=== PATIENT | female | born 1945 | race Caucasian/White ===

== ENCOUNTER → 2016-07-19 | Day surgery (SDC) | payer OTHER ==
[~2016-07-19] VITALS: Ht 165.1 cm; Wt 97.8 kg
[~2016-07-19] MED LIST: AMLO5TAB2 PO; APREPITANT 40 MG CAP ONE; ASPI1TAB69 PO; ASPI81CH CHEW; CARV12.52 PO; CHLORHEXIDINE GLUCONATE 2 % 1 PACK (2 CLOTHS) TOPICAL PRN; DO NOT ADM ANY ANTICOAGULANT DRUGS PRN; FERRIC SUBSULFATE 8 ML TOP SOLN ONE; GLIP5TAB8 PO; HYDR25TA5 PO; IBUPROFEN 200 MG TAB PO PRN; KETOROLAC TROMETHAMINE 30 MG/ML (IVP) VIAL IV PUSH PRN; KETOROLAC TROMETHAMINE 30 MG/ML (IVP) VIAL ONE; LACTATED RINGER'S 1000 ML IV PRN; LEVO.15 PO; MEDR10TA7 PO; METF1000 PO; METOPROLOL TARTRATE 25 MG TAB PO PRN; OMEG100010 PO; OMEP20TA PO; ONDANSETRON HCL 4 MG/2 ML VIAL IV PUSH ONE; OXYC1TAB63 PO; POVIDONE IODINE 5% (ANTISEPSIS KIT) 4 APPLICATIONS EACH NARE PRN; PRAD150C PO; PRAV40TA2 PO; PROPOFOL 200 MG/20 ML AMP IV ONE; RAMI10CA PO; SODIUM CHLORID 0.9% 500 ML IV PRN
[2016-07-19 07:21] VITALS: BP 159/69; PULSE 68; RESP 16; TEMP 98.7; O2SAT 98
[2016-07-19 11:40] VITALS: BP 127/72; PULSE 64; RESP 16; TEMP 97.8; O2SAT 95
[2016-07-19] MEDS: INSULIN HUMAN REGULAR 1,000 UNITS/10 ML VIAL SQ PRN ×2 (11:40→14:20)
--- NOTE | 2016-07-20 12:33 | MP ---
cc: MAIKEL GRIFFIN KELLY L. MD DATE OF PROCEDURE 07/19/2016 PREOPERATIVE DIAGNOSIS Thickened endometrial stripe. Postmenopausal bleeding. POSTOPERATIVE DIAGNOSIS Thickened endometrial stripe. Postmenopausal bleeding. PROCEDURE Examination under anesthesia, fractional dilation and curettage. SURGEON Larisa Marsh MD FILM RENTAL CLERK Nabil surveyor's assistant. ANESTHESIA Laryngeal mask anesthesia. ESTIMATED BLOOD LOSS Less than 20 cc. HISTORY A 70-year-old female with postmenopausal bleeding, endometrial stripe thickened on ultrasound. She was counseled. She also has an adnexal mass, ultimately scheduled for definitive surgery but the value of clarification of the presence or absence of endometrial cancer prior to that surgery for further planning and counseling was considered and she presents now for diagnostic surgical evaluation. FINDINGS There is no appreciably enlarged inguinal lymph node. External genitalia without mass or lesion. She has a fairly large rectocele and a moderate cystocele. The cervix grossly appears normal. The uterine cavity is anteverted, difficult to delineate the fundal height. Cautious sounding with uterine sound continued at least to 10 cm, was not pressed beyond that point. There was a small to moderate amount of tissue obtained from the endocervical canal and from the endometrial cavity. Most of the endometrial surface felt gritty and curetting did not produce any the large tissue fragments or polypoid material. PROCEDURE The patient was taken to the operating room, placed in dorsal lithotomy position. After laryngeal mask anesthesia was administered, time-out was undertaken. The patient was identified by sight recognition and hospital ID bracelet and the proposed procedure was reviewed and confirmed. She was carefully positioned in stirru. Exam under anesthesia was performed with findings as described above. Prepped and draped in the usual sterile fashion, in-and-out catheterization performed. The cervix was grasped. Posterior retractor and handheld retractors were used to help retract the cystocele and rectocele. The cervix was grasped, small dilator was used to dilate the cervix until a uterine sound could be passed. As noted above, the uterine cavity was anteverted and without resistance the sound passed to 10 cm but was not pressed beyond that. The fundal height it is uncertain, was concern about false passage or abnormal anatomy. The endocervical curetting was performed. Circumferential biopsies, multiple passes of tissue combined as endocervical curettings. Next the cervix was dilated and then medium-sized curette was used to curette the surfaces of the endometrium which felt gritty with tissue obtained as described above. Instrument was removed from the cervix, site was rendered hemostatic with topical Monsel's solution. There was good hemostasis, no remaining foreign objects in the vagina. Preliminary and final counts were correct. She was returned to dorsal supine position and was pending reversal of anesthesia when I left the operating room to precede her to the Post-Anesthesia Care Unit. MD RAYNE Sawyer/SSB /7:30 AM /12:27 PM
== END | disposition home or self-care (01) ==
LOC: HSDC 06:26
PROVIDERS: ATTEND Obstetrics & Gynecology Gynecologic Oncology
DX: C54.1 Malignant neoplasm of endometrium (principal); I13.0 Hypertensive heart and chronic kidney disease with heart failure and stage 1 through stage 4 chronic kidney disease, or unspecified chronic kidney disease; N18.2 Chronic kidney disease, stage 2 (mild); I50.9 Heart failure, unspecified; E66.9 Obesity, unspecified; E78.5 Hyperlipidemia, unspecified; E03.9 Hypothyroidism, unspecified; I25.10 Atherosclerotic heart disease of native coronary artery without angina pectoris; I48.91 Unspecified atrial fibrillation; Z95.5 Presence of coronary angioplasty implant and graft; Z68.35 Body mass index [BMI] 35.0-35.9, adult; Z88.1 Allergy status to other antibiotic agents; Z88.8 Allergy status to other drugs, medicaments and biological substances
CPT/HCPCS: 58120; 82948; 86850; 86900; 86901; 88305; 88341; 88342; J1815; J1885; J2405; J3010; J7120; J8501

== ENCOUNTER 2016-08-24 05:42 | Observation (INO) | payer OTHER ==
--- NOTE | 2016-07-19 14:36 | PD.CONS ---
HPI Service [facility] ([place], [place])ists Consult Requested By Chief Solution Architect Onc Reason for Consult Medical Management -Hyperglycemia Primary Care Physician Non-Staff Diagnoses: History of Present Illness 70 yrs old female with a PMHx of HTN, DM2, Hypothyroidism, CAD who is being evaluated for Hyperglycemia with blood glucose 300+ post treatment with NovoloG 5 units. Patient underwent Dilation and Curettage today 07/19/16 Secondary to Post menopausal Bleeding. Patient has been diagnosed with DM2 since 1998 and has had glycemia control only with oral Hypoglycemic agents. She is currently on Metformin 1000 mg BID and Glipizide 5mg BID, which she last took last night 07/18/16. She has no complaint of dizziness, nausea or emesis. Review of Systems Except as stated in HPI: all other systems reviewed are Neg Past Family Social History Allergies: Coded Allergies: Nifedipine (Verified Allergy, Severe, Fatigue, 07/19/16) pt states made her very ill Bactrim (Verified Allergy, Mild, 07/19/16) Cipro (Verified Allergy, Mild, 07/19/16) Uncoded Allergies: black silk sutures (Allergy, Unknown, 07/18/16) pt states her body rejects them Past Medical History Diabetes: Yes CAD Hypertension: Yes Immunizations Current: Yes Thyroid Disease: Yes Past Surgical History Section: Yes Cholecystectomy: Yes Endocrine Surgery: Yes (PARTIAL THYROIDECTOMY) Reported Medications Metformin 100mg BID Glipizide 5mg BID Cpreg 12,5mg BID Ramipril 10mg daily HCTZ 25mg daily NOrvasc 5mg daily Pradaxa 150mg BID Pravastatin Omeprazole 20mg daily Family History Alcohol Use: No Tobacco Use: No Substance Use: No Physical Exam Physical Exam GENERAL: This is a well-nourished, well-developed patient, in no apparent distress. SKIN: No rashes, ecchymoses or lesions. Cool and dry. HEAD: Atraumatic. Normocephalic. No temporal or scalp tenderness. EYES: Pupils equal round and reactive. Extraocular motions intact. No scleral icterus. No injection or drainage. ENT: Nose without bleeding, purulent drainage or septal hematoma. Throat without erythema, tonsillar hypertrophy or exudate. Uvula midline. Airway patent. NECK: Trachea midline. No JVD or lymphadenopathy. Supple, nontender, no meningeal signs. CARDIOVASCULAR: Regular rate and rhythm without murmurs, gallops, or rubs. RESPIRATORY: Clear to auscultation. Breath sounds equal bilaterally. No wheezes , rales, or rhonchi. GASTROINTESTINAL: Abdomen soft, non-tender, nondistended. No hepato-splenomegaly , or palpable masses. No guarding. MUSCULOSKELETAL: Extremities without clubbing, cyanosis, or edema. No joint tenderness, effusion, or edema noted. No calf tenderness. Negative Homans sign bilaterally. NEUROLOGICAL: Awake and alert. Cranial nerves II through XII intact. Motor and sensory grossly within normal limits. Five out of 5 muscle strength in all muscle groups. Normal speech. Assessment and Plan Assessment and Plan 70 yrs old female with Post menopausal Bleeding s/p D&C and management per Chief Solution Architect Onc DM2 with labile Blood glucose NovoloG 5units x 1 and will give additional 7 units and recheck Blood Glucose Patient to resume Oral hypoglycemic agents including Metformin 1000mg BID and Glipizide 5mg BID tonight 07/19/14 She will follow outpatient with PCP and check HgA1C as well as BMP Patient would likely be discharged home if Blood glucose Accu check<200 Thank you for this Consultation Code Status Full code Discussed Condition With Patient, Daughter, Titus Zarate MD July 19, 2016 14:36
[~2016-08-24] VITALS: Ht 165.1 cm; Wt 97.5 kg
[~2016-08-24 05:42] MED LIST changes: -APREPITANT 40 MG CAP ONE; -ASPI1TAB69 PO; -CHLORHEXIDINE GLUCONATE 2 % 1 PACK (2 CLOTHS) TOPICAL PRN; -DO NOT ADM ANY ANTICOAGULANT DRUGS PRN; -FERRIC SUBSULFATE 8 ML TOP SOLN ONE; -IBUPROFEN 200 MG TAB PO PRN; +INSULIN ASPART 1,000 UNITS/10 ML VIAL SQ ONE; -KETOROLAC TROMETHAMINE 30 MG/ML (IVP) VIAL IV PUSH PRN; -KETOROLAC TROMETHAMINE 30 MG/ML (IVP) VIAL ONE; -LACTATED RINGER'S 1000 ML IV PRN; -METOPROLOL TARTRATE 25 MG TAB PO PRN; -ONDANSETRON HCL 4 MG/2 ML VIAL IV PUSH ONE; -OXYC1TAB63 PO; -POVIDONE IODINE 5% (ANTISEPSIS KIT) 4 APPLICATIONS EACH NARE PRN; -PROPOFOL 200 MG/20 ML AMP IV ONE; -SODIUM CHLORID 0.9% 500 ML IV PRN
[2016-08-24] MEDS ORDERED: LACTATED RINGER'S 1000 ML IV PRN (06:15)
[2016-08-24] MEDS ORDERED: CHLORHEXIDINE GLUCONATE 2 % 1 PACK (2 CLOTHS) TOPICAL PRN (06:15)
[2016-08-24] MEDS ORDERED: SODIUM CHLORID 0.9% 500 ML IV PRN (06:15)
[2016-08-24] MEDS ORDERED: METOPROLOL TARTRATE 25 MG TAB PO PRN (06:15)
[2016-08-24] MEDS ORDERED: POVIDONE IODINE 5% (ANTISEPSIS KIT) 4 APPLICATIONS EACH NARE PRN (06:15)
[2016-08-24] MEDS ORDERED: INSULIN HUMAN REGULAR 1,000 UNITS/10 ML VIAL SQ PRN (06:15)
[2016-08-24] MEDS ORDERED: HEPARIN SODIUM - SQ 10,000 UNITS/ML VIAL SQ SCH (06:15)
[2016-08-24] MEDS ORDERED: HEPARIN SODIUM - SQ 10,000 UNITS/ML VIAL ONE (06:20)
[2016-08-24] MEDS ORDERED: ceFAZolin 2 GM PREMIX 50 ML ONE (06:20)
[2016-08-24 06:25] VITALS: BP 188/87; PULSE 88; RESP 18; TEMP 98.5; O2SAT 97
[2016-08-24] MEDS ORDERED: SODIUM CHLORIDE FLUSH PRN IV FLUSH (06:30)
[2016-08-24] MEDS ORDERED: ceFAZolin 2 GM PREMIX 50 ML IV SCH (06:30)
[2016-08-24] MEDS ORDERED: APREPITANT 40 MG CAP ONE (07:19)
[2016-08-24] MEDS ORDERED: DEXAMETHASONE SOD PHOS 4 MG/ML VIAL ONE (07:19)
[2016-08-24] MEDS ORDERED: MIDAZOLAM HCL 2 MG/2 ML VIAL ONE (07:19)
[2016-08-24] MEDS ORDERED: FAMOTIDINE 20 MG/2 ML VIAL ONE (07:19)
[2016-08-24] MEDS ORDERED: LIDOCAINE 1.5%/EPINEPHrine 1:200,000 PF SOLN 30 ML AMP INFIL ONE (08:20)
[2016-08-24] MEDS ORDERED: SODIUM CHLORIDE FLUSH BID IV FLUSH SCH (09:00)
[2016-08-24] MEDS ORDERED: METHYLENE BLUE 10 MG/ML VIAL OTHER ONE (10:00)
[2016-08-24] MEDS ORDERED: SUGAMMADEX SODIUM 200 MG/2 ML VIAL IV PUSH ONE ×4 (10:27→11:40)
[2016-08-24] MEDS ORDERED: ceFAZolin INJ 1,000 MG VIAL IV ONE (10:30)
[2016-08-24] MEDS ORDERED: D5-1/2 NS + KCL 20 MEQ INJ 1,000 ML IV SCH ×2 (11:37→17:00)
[2016-08-24] MEDS ORDERED: SODIUM CHLORIDE 0.9% FLUSH 10 ML FLUSH IV FLUSH PRN (11:45)
[2016-08-24] MEDS ORDERED: oxyCODONE/ACETAMINOPHEN 5 MG/325 MG TAB PO PRN (11:45)
[2016-08-24] MEDS ORDERED: ONDANSETRON HCL 4 MG/2 ML VIAL IVP PRN (11:45)
[2016-08-24] MEDS ORDERED: diphenhydrAMINE HCL 25 MG CAP PO PRN (11:45)
[2016-08-24] MEDS ORDERED: LORazepam 0.5 MG TAB PO PRN (11:45)
[2016-08-24] MEDS ORDERED: DO NOT ADM ANY ANTICOAGULANT DRUGS PRN (11:50)
[2016-08-24] MEDS ORDERED: fentaNYL CITRATE 250 MCG/5 ML AMP ONE (11:56)
[2016-08-24] MEDS ORDERED: ePHEDrine/NS 25 MG/5 ML SYR IV ONE (12:00)
[2016-08-24] MEDS ORDERED: PROPOFOL 200 MG/20 ML AMP IV ONE (12:00)
[2016-08-24] MEDS ORDERED: PHENYLEPH/NS 1000 MCG/10 ML SYR IV ONE (12:00)
[2016-08-24] MEDS ORDERED: ONDANSETRON HCL 4 MG/2 ML VIAL IV PUSH ONE (12:00)
[2016-08-24] MEDS ORDERED: LACTATED RINGER'S 1000 ML INJ 1,000 ML IV ONE (12:00)
[2016-08-24] MEDS ORDERED: *morphine SULFATE 8 MG/ML PERIprocedure ONLY ONE (12:14)
[2016-08-24 13:00] VITALS: BP 132/58; PULSE 90; RESP 16; TEMP 97.6; O2SAT 98
[2016-08-24] MEDS ORDERED: 1/2 NS + KCL 20 MEQ INJ 1,000 ML IV SCH (13:45)
[2016-08-24 14:03] VITALS: BP 148/70; PULSE 74; RESP 19; TEMP 95.1; O2SAT 98
[2016-08-24] MEDS ORDERED: PHENAZOPYRIDINE HCL 100 MG TAB PO PRN (14:15)
--- NOTE | 2016-08-24 14:16 | PD.ONC.PN ---
Subjective Subjective Remarks feather baler/onc post op note pt resting in bed with discomfort from the henning..confirmed it is draining denies any other pain mild nausea no vomiting Objective Data Date Time Temp Pulse Resp B/P Pulse Ox O2 Delivery O2 Flow Rate FiO2 08/24/16 13:00 97.6 90 16 132/58 98 08/24/16 12:45 97.3 69 14 156/66 100 Nasal Cannula 3 08/24/16 12:30 67 16 136/63 100 Nasal Cannula 3 08/24/16 12:15 62 14 159/83 100 Nasal Cannula 3 08/24/16 12:00 67 17 160/72 100 Nasal Cannula 3 08/24/16 11:49 98.1 66 15 186/84 99 Nasal Cannula 3 08/24/16 06:25 98.5 88 18 188/87 97 08/24/16 08/24/16 08/24/16 07:00 15:00 23:00 Intake Total 1700 ml Output Total 650 ml Balance 1050 ml Laboratory Results Laboratory Tests Test 08/24/16 06:05 Blood Type A NEGATIVE Antibody Screen NEGATIVE Administered Medications Medications (Trade) Dose Ordered Sig/Uli Route PRN Reason Start Time Stop Time Status Last Admin Dose Admin Potassium Chloride/Sodium Chloride (1/2 NS + KCl 20 Meq Inj) 1,000 ml @ 75 mls/hr [id number] IV 08/24/16 13:45 08/24/16 14:11 Objective Remarks GENERAL: Well-nourished, well-developed patient. SKIN: Warm and dry. HEAD: Normocephalic. EYES: No scleral icterus. No injection or drainage. CARDIOVASCULAR: Regular rate and rhythm without murmurs. RESPIRATORY: Breath sounds equal bilaterally. No accessory muscle use. GASTROINTESTINAL: SS are c/d/i EXTREMITIES:teds and scds MUSCULOSKELETAL: Adequate muscle tone. NEUROLOGICAL: No obvious focal deficit. Awake, alert, and oriented x3. PSYCHIATRIC: Appropriate mood and affect; insight and judgment normal. Assessment/Plan Problem List: (1) Post-operative state Status: Acute Plan: s/p RA lap hyst with bso post op orders in chart ADAT can get OOB to chair will add Pyridium to help with bladder discomfort Percocet and Toradol for pain anticipate d/c home tomorrow Kashif Ingram Aug 24, 2016 14:16
[2016-08-24] MEDS: KETOROLAC TROMETHAMINE 30 MG/ML (IVP) VIAL IVP SCH ×3 (14:42→23:48)
[2016-08-24] MEDS ORDERED: LOW DOSE INSULIN NOVOLIN REGULAR SUPPLEMENTAL SCALE SQ SCH (16:00)
[2016-08-24] MEDS ORDERED: INSULIN NovoLIN REGULAR SUPPLEMENTAL SCALE SQ SCH (16:00)
[2016-08-24] MEDS ORDERED: GLUCAGON 1 MG/ML VIAL OTHER PRN (17:30)
[2016-08-24] MEDS ORDERED: DEXTROSE 50% IN WATER 50 ML VIAL(D50) IV PUSH PRN (17:30)
[2016-08-24] MEDS: oxyCODONE/ACETAMINOPHEN 5 MG/325 MG TAB PO PRN (18:52)
[2016-08-24 20:00] VITALS: BP 130/62; PULSE 68; RESP 16; TEMP 97.7; O2SAT 97
[2016-08-24] MEDS: RAMIPRIL 5 MG CAP PO SCH (20:37)
[2016-08-24] MEDS: amLODIPine BESYLATE 5 MG TAB PO SCH (20:37)
[2016-08-24] MEDS: CARVEDILOL 12.5 MG TAB PO SCH (20:37)
[2016-08-24] MEDS: MEDIUM DOSE INSULIN NOVOLIN REGULAR SUPPLEMENTAL SCALE SQ SCH (20:42)
[2016-08-24] MEDS: SODIUM CHLORIDE 0.9% FLUSH 10 ML FLUSH IV FLUSH SCH (20:44)
[2016-08-24] MEDS ORDERED: PRAVASTATIN SOD 40 MG TAB PO SCH (21:00)
[2016-08-25] VITALS: BP 131/60; PULSE 67; RESP 16; TEMP 97.3; O2SAT 97
[2016-08-25 04:08] VITALS: BP 140/72; PULSE 60; RESP 16; TEMP 96.2; O2SAT 98
[2016-08-25] MEDS: KETOROLAC TROMETHAMINE 30 MG/ML (IVP) VIAL IVP SCH (05:44)
[2016-08-25] MEDS ORDERED: LEVOTHYROXINE SODIUM 150 MCG TAB PO SCH (06:00)
[2016-08-25] MEDS: MEDIUM DOSE INSULIN NOVOLIN REGULAR SUPPLEMENTAL SCALE SQ SCH ×3 (06:02→16:00)
[2016-08-25] MEDS ORDERED: OXYC1TAB63 PO (07:03)
[2016-08-25 08:00] VITALS: BP 142/66; PULSE 65; RESP 18; TEMP 97.2; O2SAT 96
[2016-08-25 08:07] LABS: AUTOMATED NEUTROPHIL # 10.8 TH/MM3 (1.8-7.7); BASOPHIL # 0.1 TH/MM3 (0-0.2); BASOPHIL % 0.4 % (0.0-2.0); EOSINOPHIL # 0.1 TH/MM3 (0-0.4); EOSINOPHIL % 0.4 % (0.0-4.0); HEMATOCRIT 35.2 % (35.0-46.0); HEMO FLAGS DIFF FINAL; LYMPH % 11.2 % (9.0-44.0); LYMPHOCYTE # 1.5 TH/MM3 (1.0-4.8); MEAN CELL VOLUME 80.3 FL (80.0-100.0); MEAN CORPUSCULAR HEMOGLOBIN 26.1 PG (27.0-34.0); MEAN CORPUSCULAR HGB CONC 32.5 % (32.0-36.0); MONO % 8.1 % (0.0-8.0); NEUT % 79.9 % (16.0-70.0); PLATELET COUNT 212 TH/MM3 (150-450); RED BLOOD COUNT 4.39 MIL/MM3 (4.00-5.30); RED CELL DISTRIBUTION WIDTH 15.6 % (11.6-17.2); WHITE BLOOD COUNT 13.5 TH/MM3 (4.0-11.0)
[2016-08-25 08:25] LABS: BICARBONATE 27.5 MEQ/L (21.0-32.0); POTASSIUM 3.5 MEQ/L (3.5-5.1)
[2016-08-25] MEDS: CARVEDILOL 12.5 MG TAB PO SCH (08:39)
[2016-08-25] MEDS: RAMIPRIL 5 MG CAP PO SCH (08:40)
[2016-08-25] MEDS: amLODIPine BESYLATE 5 MG TAB PO SCH (08:40)
[2016-08-25] MEDS: SODIUM CHLORIDE 0.9% FLUSH 10 ML FLUSH IV FLUSH SCH (08:40)
[2016-08-25] MEDS ORDERED: HYDROCHLOROTHIAZIDE 25 MG TAB PO SCH (09:00)
[2016-08-25] MEDS ORDERED: PANTOPRAZOLE SOD 20 MG DELAYED RELEASE TAB PO SCH (09:00)
[2016-08-25] MEDS: oxyCODONE/ACETAMINOPHEN 5 MG/325 MG TAB PO PRN ×2 (11:01→15:34)
[2016-08-25 12:00] VITALS: BP 105/51; PULSE 66; RESP 18; TEMP 98.4; O2SAT 96
[2016-08-25 16:01] VITALS: BP 136/69; PULSE 71; RESP 18; TEMP 100; O2SAT 97
--- NOTE | 2016-08-25 22:45 | MP ---
cc: MAIKEL GRIFFIN KELLY L. MD ZAWMYINT, DR DATE OF SURGERY 08/24/2016 PREOPERATIVE DIAGNOSIS 1. Endometrial cancer. 2. Bilateral adnexal masses. POSTOPERATIVE DIAGNOSIS 1. Endometrial cancer. 2. Bilateral adnexal masses. 3. Extensive intraperitoneal and pelvic adhesions. PROCEDURE Robotic-assisted laparoscopic hysterectomy, bilateral salpingo-oophorectomy, extensive lysis of adhesions. SURGEON Song Marsh MD HEAD PASTRY CHEF [employer] family services assistant ANESTHESIA General endotracheal anesthesia ESTIMATED BLOOD LOSS 150 mL IV FLUIDS 1700 mL URINE OUTPUT 500 mL HISTORY A 71-year-old female postmenopausal bleeding, thickened endometrial stripe. Imaging showing 6-7 cm complex mass in the left pelvis and also a prominent ovary in the right pelvis. She underwent recent dilation and curettage where the uterine cavity was distorted. It sounded to at least 10 cm at that time. Tissue obtained was scant but showed endometrial adenocarcinoma. She was counseled regarding definitive surgery based on these findings. She has undergone cardiac evaluation and tentative clearance as moderate cardiovascular risk. She was able to stop her Pradaxa but it was recommended that she continue her aspirin. She is seen again in the preop holding area. These findings, issues, concerns and plan of care are discussed. Questions were answered. She expressed good understanding and wished to proceed. FINDINGS On exam under anesthesia, the uterine cavity sounded to a depth of 14 cm when the sound was advanced until the fundus could be reached and it was markedly anteverted. In the peritoneal cavity, the reason for this became apparent as the uterus was densely adherent, fixed and scarred to the anterior abdominal wall such that the uterus and cervix over many years time have been essentially elongated, stressed out from this adherent position. This is consistent with multiple scars and keloid on her abdominal wall as she had four prior sections. The left ovary is approximately 7 cm, smooth, few loculated cysts. No nodularity on the surface and grossly appears benign. The right ovary has a small firm approximately 2 cm nodule adjacent to the tube and ovary that has a gross appearance of perhaps a fibroma. In the peritoneal cavity, the omentum is adherent to the anterior abdominal wall from prior surgical incision and in the pelvis the adnexa are adherent to the sidewall and posterior cul-de-sac. Some adhesions to the overlying colon and then extensive adhesions between the uterus, cervix, anterior abdominal wall as well as additional extensive adhesions between the bladder, abdominal wall and uterus. Modifier - extensive adhesions required significant amount of additional time to gain safe access to the peritoneal cavity, restore normal anatomy and accomplish surgical objectives. This combined with her body habitus weight of 100 kg are such that modifiers should be applied accordingly. Additional findings - There was no evidence of intraperitoneal disease. The peritoneal surfaces were smooth. The omentum, large, small bowel, adjacent mesentery grossly appeared normal. There was no appreciably enlarged pelvic or para-aortic lymph nodes. preliminary pathology of the uterus showed a low grade tumor approximately 3.5 cm in the fundal region. No cervical extension. It grossly invaded into the wall of the uterus approximately 50% of the depth of the myometrium perhaps slightly over 50%. Both ovaries had benign appearance on preliminary assessment. PROCEDURE IN DETAIL The patient was taken to the operating room placed in dorsal lithotomy position. After general endotracheal anesthesia was administered time-out undertaken. The patient was identified by sight recognition and hospital ID bracelet and the proposed procedure was reviewed and confirmed. She was carefully positioned in padded Masoud stirrups. Her arms were padded and secured to the sides. She was further secured to the operating table with egg crate padding and tape in across chest over the shoulder fashion. All sites noted to be properly aligned with no malalignments or pressure points. She was prepped and draped in sterile fashion and placed in lithotomy position, cervix was grasped, uterine cavity was sounded with findings as described above, dilated. She has a very prominent rectocele and a mild cystocele which further hindered exposure and a large V-Care manipulator was inserted and secured in the usual fashion. Rapp catheter placed in the bladder. She was returned to low lithotomy position. Change of sterile gloves was undertaken. We completed prepping and draping in anticipation of laparoscopy. After confirming an orogastric tube was in the stomach on suction with manual elevation of the abdominal wall direct laparoscopic visualization, 5 mm cannula introduced into the left upper quadrant in an atraumatic fashion. Carbon dioxide gas was insufflated. A 12-mm cannula was placed in the midline above the umbilicus. Sharp dissection and blunt dissection were then used to take down the adhesions of the omentum until the abdominal wall was free and additional ports could be accessed. An 8 mm cannula placed in the right upper quadrant and in the left lateral quadrant and the original five exchanged for an 8-mm cannula. She was placed in steep Trendelenburg position. Peritoneal washings were obtained for cytology. The anatomy was surveyed with findings as described above. Three Ray-Zonia sponges were placed around the root of the small bowel mesentery. Robotic system brought into the operative field, attached in the usual fashion. Monopolar scissors, fenestrated bipolar forceps and Prograsp manipulators placed in arms #1, 2 and 3 respectively and I took my place at the surgeon's console. Extensive amount of time was spent lysing adhesions, trying to gain access to the pelvis. The right round ligament was isolated, cauterized and transected. The anterior and posterior leafs of the broad ligament were opened. Right ureter was identified. Right infundibulopelvic ligament was isolated. The intervening peritoneum was opened. Infundibulopelvic ligament was isolated, cauterized at the level of the pelvic brim and transected. Distal dissection was carried out to free adhesions around the adnexa from where it is attached in the right pelvic sidewall and to isolate the right utero-ovarian ligament, posterior peritoneum was opened along the right side of uterus and cervix. Attention was directed toward the left side. Left retroperitoneal dissection was carried out. Lysis of adhesion was required to mobilize the colon and to free the left ovary from its attachments and to free adhesions from the cul-de-sac. The left ureter was identified. The left infundibulopelvic ligament was isolated. The intervening peritoneum was opened at the infundibulopelvic ligament, was isolated to the level of the pelvic brim where it was cauterized and transected. Distal dissection was carried out to isolate the adnexa on the left utero-ovarian ligament and then the left utero-ovarian ligament was cauterized and transected thereby removing the left tube and ovary which were placed in the right pericolic gutter for later retrieval. The posterior peritoneum opened along the left side of the uterus and cervix and then initiation was begun trying to lyse adhesions, the densely adherent uterus, cervix and bladder from the anterior abdominal wall. Sharp dissection was carried down starting at the uterine fundus trying to identify a plane between the fundus and the peritoneum. Sharp dissection, focal cautery was used to carry out, dissect the uterine fundus and then anterior uterus from the anterior abdominal wall. Lateral dissection was used to try to identify the peritoneum overlying the bladder and dissection was carried out to the extent possible. The bladder was filled to help further identify the bladder and facilitate a dissection. Sharp and blunt dissection were used to now further mobilize the bladder, take down additional adhesions and then dissect the bladder off the lower uterine segment and cervix and the bladder was then drained. The uterine vessels were cauterized bilaterally and transected and then the cardinal, paracervical and uterosacral ligaments were isolated, cauterized and transected in a stepwise fashion. The anatomical border of the cervix was identified. The large V-Care manipulator could not be secured around the base of the cervix. Posterior colpotomy was made just above the cap of the V-Care below the cervix and carried out circumferentially the cervix from upper vagina and the specimen was withdrawn transvaginally which included uterus, cervix and the attached right tube and ovary. A pneumo-occluder balloon was placed in the vagina to maintain pneumoperitoneum. 12 cm EndoCatch bag was introduced transvaginally and the right tube and ovary were placed and the bag was closed and the specimen was withdrawn transvaginally without rupture. 0 Vicryl sutures were introduced as instruments 1 and 3 exchanged for needle drivers. Vaginal cuff was closed starting at the left corner, full-thickness closure, incorporating also the edge of the uterosacral ligament and posterior peritoneum, tied via instrument tie. The closure was held on continuous countertraction as a running continuous full-thickness closure, was carried across the vaginal cuff to the contralateral corner where it was similarly secured, tied via instrument tie. The needle was cut and removed. The integrity of bladder was again confirmed by filling the bladder with saline dyed with methylene blue. There were no blue spots, no thin areas in the bladder. No extravasation of dye and a good margin between the vaginal cuff suture line and the edge of the bladder. The bladder was then drained. There was good peristalsis of ureters bilaterally. Visual inspection of the retroperitoneum and the periaortic pericaval region right and left pelvis showed no overtly enlarged lymph nodes. The pathology came back showing a low grade tumor with low to intermediate risk factors. It was felt that in this individual she had already been under anesthesia significant period of time and it was felt that the morbidity of lymph node dissection or additional staging biopsies exceeded the potential benefit such that the morbidity may exceed the benefit and it was felt that all reasonable surgical objectives in this individual had been completed. The robotic instruments were removed. The robotic system was disengaged from the operative field. I reentered the bedside under sterile condition. The 12-mm fascial defect was closed with 0 Vicryl sutures using a needle pass apparatus. They were tied securely which rendered the fascia completely airtight and hemostatic. Remaining cannulas were withdrawn. Carbon dioxide gas was removed from the peritoneal cavity. 3-0 Vicryl subcutaneous, 3-0 Vicryl subcuticular were used to close these incisions. It should be noted that prior to closure the peritoneal cavity was inspected. Each of the three Ray-Zonia sponges that had been placed in the peritoneum were removed through the 12-mm cannula. Each were inspected and noted to be removed in their entirety. The pelvis was very copiously irrigated. All sites were hemostatic and preliminary counts were correct. After abdominal wall closure, she was returned to dorsal lithotomy position. Pelvic exam confirmed the vaginal cuff was well-supported. The suture line was intact. There was some superficial irritation to the vaginal mucosa but no lacerations and some of the remaining Kate powder which had previously been placed across the vaginal cuff and the peritoneal cavity was now placed across the vaginal cuff in the vagina. All sites were hemostatic. There were no remaining foreign objects in the vagina. Final counts were correct and she was returned to dorsal supine position and was pending reversal of anesthesia when I left the operating room to precede her to the Post Anesthesia Care Unit. MD RAYNE Sawyer/ /7:37 AM /10:18 PM
--- NOTE | 2016-08-29 20:14 | MD ---
cc: MAIKEL GRIFFIN,ALONA MARKS,SHANNON Marquez MD ADMISSION DATE: 08/24/2016 DISCHARGE DATE: 08/25/2016 PROCEDURE 08/24/2016 robotic-assisted laparoscopic hysterectomy, bilateral salpingo-oophorectomy, extensive lysis of adhesions. DIAGNOSIS 1. Endometrial cancer. 2. Bilateral adnexal masses. HOSPITAL COURSE She did well in early postop. She was tolerating oral intake. Rapp catheter removed. She is pending voiding, hemodynamically stable. No nausea, vomiting or chest pain. Ins and outs 1940/650. Morning labs are pending at the time of this dictation. PHYSICAL EXAMINATION VITAL SIGNS: Afebrile, pulse 60-90, respirations 14-19, blood pressure 130-156 over 58-72, O2 saturations greater than or equal to 97%. GENERAL: Alert and oriented x3, in no acute distress. LUNGS: Clear, mild rales at the bases. CARDIOVASCULAR: Irregular rate and rhythm but with rate controlled consistent with baseline. ABDOMEN: Nondistended and nontender. Incisions are clean and dry. SKIN PILER: No bleeding. EXTREMITIES: Nontender. ASSESSMENT Postoperative day #1 doing well in early postop. Preliminary findings, preliminary pathology reviewed. Activities restrictions discussed. Again noted is her seemingly poorly controlled diabetes. She is made aware of this. She was reminded that after a recent D&C her glucose levels were greater than 300. She has been put on an intermediate dose sliding scale this hospitalization and her glucose levels have been in the mid 200s. Accordingly, she is to resume her outpatient medication including her oral hyperglycemics but she is also encouraged to follow up with her primary care physician as she may need updated evaluation, may need medication modification. Discussion ensued, questions were answered. She and her daughter expressed good understanding. PLAN Therefore, anticipate discharge to home. Our office number is again made available. She is contact our office to schedule follow up in 2 weeks. She is to resume her prior medication including her aspirin and her Pradaxa in keeping with the recommendations by her restaurant hospitality manager and follow up as per their recommendation as well. She is contact our office should she have any questions or problems between now and the time of followup. She will have a prescription for Percocet for pain. MD JACKSON Sawyer /7:14 AM /8:07 PM
== END 2016-08-25 19:50 | disposition home or self-care (01) ==
LOC: HSDC 05:42 → HSDI 11:39 → HOCA 12:57
PROVIDERS: ADMIT Obstetrics & Gynecology Gynecologic Oncology; ATTEND Obstetrics & Gynecology Gynecologic Oncology
DX: C54.1 Malignant neoplasm of endometrium (principal); N73.6 Female pelvic peritoneal adhesions (postinfective); N83.201 Unspecified ovarian cyst, right side; N88.8 Other specified noninflammatory disorders of cervix uteri; D27.0 Benign neoplasm of right ovary; N81.10 Cystocele, unspecified; N81.6 Rectocele; K66.0 Peritoneal adhesions (postprocedural) (postinfection); R93.8 Abnormal findings on diagnostic imaging of other specified body structures; N95.0 Postmenopausal bleeding; I25.10 Atherosclerotic heart disease of native coronary artery without angina pectoris; I10 Essential (primary) hypertension; E11.65 Type 2 diabetes mellitus with hyperglycemia; E03.9 Hypothyroidism, unspecified; Z79.84 Long term (current) use of oral hypoglycemic drugs; Z79.899 Other long term (current) drug therapy
CPT/HCPCS: 00840; 58571; 80048; 82948; 85025; 86850; 86900; 86901; 88112; 88305; 88307; 88331; 94150; G0378; J0690; J1100; J1885; J2250; J2270; J2370; J2405; J3010; J3480; J7120; J8501; J1644

== ENCOUNTER 2016-10-26 18:17 | Emergency (ER) | payer OTHER ==
[~2016-10-26] VITALS: Ht 165.1 cm; Wt 101.1 kg
[~2016-10-26 18:17] MED LIST changes: -INSULIN ASPART 1,000 UNITS/10 ML VIAL SQ ONE; +OXYC1TAB63 PO
[2016-10-26 18:22] VITALS: BP 121/71; PULSE 66; RESP 18; TEMP 98.3
[2016-10-26] MEDS ORDERED: RANI150T PO (18:38)
[2016-10-26] MEDS ORDERED: CHOL5000 PO (18:41)
[2016-10-26] MEDS ORDERED: VITA250T3 PO (18:41)
[2016-10-26] MEDS ORDERED: COEN1CAP PO (18:41)
[2016-10-26] MEDS ORDERED: MENA1TAB (18:41)
[2016-10-26] MEDS ORDERED: LACTCAP8 PO (18:41)
[2016-10-26] MEDS ORDERED: MAGN500T5 PO (18:41)
[2016-10-26] MEDS ORDERED: LIDOCAINE HCL 1% 50 ML VIAL INFIL ONE (18:45)
[2016-10-26] MEDS ORDERED: BUPIVACAINE HCL PF 0.5% 10 ML VIAL INFIL ONE (18:45)
--- NOTE | 2016-10-26 18:45 | PD ---
HPI Chief Complaint: Injury Time Seen by Provider: 18:28 Travel History International Travel<30 days: No Contact w/Intl Traveler<30days: No Traveled to known affect area: No History of Present Illness HPI 71-year-old female presents to the emergency room for evaluation of left great toe nail avulsion that occurred earlier today. Patient was wearing tennis shoes while walking down the stairs. She felt a sharp pain in her great toe but it only lasted a minute so she went about her day. States tonight when she took her shoes off, she noticed her toe nail was sticking up. Patient states she had stitched a patch in a hole at the toe of the shoe yesterday and believes her toenail may have snagged the patch. She has history of diabetes and decreased sensation to her feet. Denies significant pain at this time. Patient has not taken anything for symptoms. Last tetanus was 1-2 years ago. PFSH Past Medical History Hx Anticoagulant Therapy: Yes (pradaxa) Cancer: Yes Cardiovascular Problems: Yes Diabetes: Yes Diminished Hearing: No Endocrine: Yes Genitourinary: No Hepatitis: No Hiatal Hernia: Yes Hypertension: Yes Immune Disorder: No Musculoskeletal: Yes Neurologic: Yes Psychiatric: No Reproductive: Yes Respiratory: No Immunizations Current: Yes Thyroid Disease: Yes Past Surgical History Abdominal Surgery: Yes (GALLBLADDER) AICD: No Body Medical Devices: 2 STENTS Cardiac Surgery: Yes (2 STENTS) Section: Yes Cholecystectomy: Yes Endocrine Surgery: Yes (PARTIAL THYROIDECTOMY) Gynecologic Surgery: Yes (D+C) Hysterectomy: Yes Joint Replacement: No Pacemaker: No Social History Alcohol Use: No Tobacco Use: No Substance Use: No Allergies-Medications (Allergen,Severity, Reaction): Coded Allergies: nifedipine (Unverified Allergy, Severe, Fatigue, 10/26/16) pt states made her very ill ciprofloxacin (Unverified Allergy, Mild, 10/26/16) sulfamethoxazole (Unverified Allergy, Mild, 10/26/16) trimethoprim (Unverified Allergy, Mild, 10/26/16) Uncoded Allergies: black silk sutures (Allergy, Unknown, 07/18/16) pt states her body rejects them Reported Meds & Prescriptions Reported Meds & Active Scripts Active Reported Lasix (Furosemide) 20 Mg Tab 20 Mg PO DAILY Probiotic (Lactobacillus Acidophilus) 10 Billion Cell Cap 1 Cap PO TIDAC Vitamin K2 (Menaquinone-7) 40 Mcg Tab Vitamin D3 (Cholecalciferol) 5,000 Unit Cap 5,000 Units PO DAILY Vitamin C (Ascorbic Acid) 250 Mg Tab 1,000 Mg PO Magnesium Gluconate 27 Mg (500 Mg) Tab 500 Mg PO DAILY Co Q-10 (Coenzyme Q10 (Ubidecarenone)) 100 Mg Cap 1 Tab PO DAILY Ranitidine (Ranitidine HCl) 150 Mg Tab 150 Mg PO HS Aspirin 81 Mg Chew 81 Mg CHEW DAILY PT TOLD NOT TO STOP BY [employer] Synthroid (Levothyroxine Sodium) 150 Mcg Tab 150 Mcg PO DAILY Metformin (Metformin HCl) 1,000 Mg Tab 1,000 Mg PO BIDPC With meals Pravastatin 40 Mg Tab 40 Mg PO HS Pradaxa (Dabigatran) 150 Mg Cap 150 Mg PO BID Glipizide 5 Mg Tab 5 Mg PO BIDAC Take 30 minutes before a meal Amlodipine (Amlodipine Besylate) 5 Mg Tab 5 Mg PO BID [place] 3 1000 mg ([place]-3 Fatty Acids) 1 Cap Cap 1 Caplet PO DAILY Ramipril 10 Mg Cap 10 Mg PO BID Carvedilol 12.5 Mg Tab 12.5 Mg PO BID Review of Systems Except as stated in HPI: all other systems reviewed are Neg Physical Exam Narrative GENERAL: Well-nourished, well-developed female in no acute distress. Afebrile. Ambulatory. SKIN: Focused skin assessment warm/dry. There is a partial nail avulsion of the left great toe. The matrix appears intact. No nail bed laceration appreciated. HEAD: Normocephalic. EYES: No scleral icterus. No injection or drainage. NECK: Supple, trachea midline. No JVD or lymphadenopathy. CARDIOVASCULAR: Regular rate and rhythm without murmurs, gallops, or rubs. RESPIRATORY: Breath sounds equal bilaterally. No accessory muscle use. MUSCULOSKELETAL: No cyanosis. No significant edema. No erythema. Less than 2 second capillary refill distally of the left great toe. No tenderness to palpation. Data Data Last Documented VS Vital Signs Date Time Temp Pulse Resp B/P (MAP) Pulse Ox O2 Delivery O2 Flow Rate FiO2 10/26/16 18:22 98.3 66 18 121/71 (88) Orders Orders Toe (Min 2vws) (10/26/16 ) Bupivacaine Pf 0.5% Inj (Marcaine Pf 0.5 (10/26/16 18:45) Lidocaine 1% Inj (50 Ml) (Xylocaine 1% I (10/26/16 18:45) MDM Medical Decision Making Medical Screen Exam Complete: Yes Emergency Medical Condition: Yes Medical Record Reviewed: Yes Differential Diagnosis Nail avulsion, laceration, abrasion, contusion, fracture Narrative Course 71-year-old female with history of diabetes presents to the emergency room for evaluation of a nail avulsion to her left great toe that occurred earlier today. She was wearing tennis shoes, walking down the stairs, when she felt a sharp sensation to her toe that lasted 1 minute. States she did not realize her toe was affected until later on tonight after taking off her shoe. Physical exam reveals a partial toenail avulsion of the left great toe without significant edema or erythema. Because patient did not feel her toe injury and is diabetic, x-ray was performed to evaluate for fracture. X-ray is negative. Digital block was performed and toenail was replaced, see procedure for details. Patient discharged with wound care instructions and told to follow up with a primary care physician or medical office specialist or return for worsening symptoms. She understands and agrees to plan to plan. Procedures Procedure Narrative LACERATION LOCATION: Left great toenail REPAIR: The area of the laceration was prepped with Betadine, thoroughly irrigated, and sterilely draped. Digital block was performed using 0.5% bupivacaine and 1% lidocaine mixture. The wound was copiously irrigated and explored without evidence of foreign body, tendon injury or neurovascular injury. The nail was reapproximated and attached to the skin using Dermabond. This was a single layer repair. A sterile dressing was applied. The patient was advised to keep the dressing clean and dry. Patient tolerated the procedure well. Diagnosis Primary Impression: Nail avulsion of toe Qualified Codes: S91.209A - Unspecified open wound of unspecified toe(s) with damage to nail, initial encounter Referrals: [facility]er Primary Care Physician Disposition: 01 DISCHARGE HOME Condition: Stable Deana Driver Oct 26, 2016 18:45
[2016-10-26] MEDS ORDERED: FURO1TAB62 PO (18:51)
--- NOTE | 2016-10-26 20:07 | RADRPT ---
EXAM DATE/TIME: 10/26/2016 18:40 [facility] COMPARISON: No previous studies available for comparison. INDICATIONS : Left great toe nail lifting up with no known injury. MEDICAL HISTORY : Diabetes mellitus type II. SURGICAL HISTORY : None. ENCOUNTER: Initial ACUITY: 1 day PAIN SCORE: 10 LOCATION: Left great toe. FINDINGS: A definite fracture is not seen. The nail of the first digit is clearly being superior ly lifted. On the AP and oblique view there does appear to be some linear density projecting over th e mid aspect of the first distal phalanx. No abnormality is seen on the lateral view in this region. This area of increased density could be related to some sclerosis at the plantar aspect of the first digit versus overlap of part of the nail causing this density. It is thought not likely significant given how normal the lateral view appears. CONCLUSION: Superior uplifting of the first nail without a definitive cause seen. Ottoniel Grajeda MD on October 26, 2016 at 19:47 Board Certified Radiologist. This report was verified electronically.
== END 2016-10-26 20:08 | disposition home or self-care (01) ==
LOC: PHEFT 18:17
DX: S91.202A Unspecified open wound of left great toe with damage to nail, initial encounter (principal); X58.XXXA Exposure to other specified factors, initial encounter; Y93.01 Activity, walking, marching and hiking; E11.9 Type 2 diabetes mellitus without complications; I10 Essential (primary) hypertension; Z79.01 Long term (current) use of anticoagulants; E07.9 Disorder of thyroid, unspecified
CPT/HCPCS: 11760; 73660